=== PATIENT | male | born 1955 | race Caucasian/White ===

== ENCOUNTER → 2016-06-09 | Day surgery (SDC) | payer BC ==
[~2016-06-09] VITALS: Ht 177.8 cm; Wt 107.5 kg
[~2016-06-09] MED LIST: ATEN25TA PO; BUPIVACAINE HCL 0.5% 30 ML VIAL XX ONE; BUPIVACAINE/EPIN 0.5% 30 ML VIAL As Ordered ONE; GLYCOPYRROLATE INJ 0.2 MG/ML 2 ML VIAL As Ordered ONE; LIDOCAINE 2% INJ 100 MG/5 ML SDV (FOR ANES.) As Ordered ONE; LIDOCAINE W/EPINEPHRINE 1% 20ML VIAL As Ordered ONE; LIDOCAINE W/EPINEPHRINE 1% 20ML VIAL XX ONE; LR 1,000 ML IV SCH; METOCLOPRAMIDE INJ 10MG/2ML VIAL (J2765) As Ordered ONE; METOCLOPRAMIDE INJ 10MG/2ML VIAL (J2765) IV PRN; MIDAZOLAM INJ 2 MG/2 ML VIAL (J2250) As Ordered ONE; MORPHINE 10 MG/ML 1ML VIAL IV PRN; NEOSTIGMINE 1MG/ML 5 ML SYRINGE (J2710) As Ordered ONE; OMEP40CA2 PO; ONDANSETRON 4MG/2ML VIAL (J2405) As Ordered ONE; ONDANSETRON 4MG/2ML VIAL (J2405) IV PRN; PERCOCET 5MG/325MG TAB PO PRN; PERCOCET PO; PROPOFOL 200 MG/20 ML VIAL As Ordered ONE; ROCURONIUM BROMIDE 50 MG/5 ML VIAL As Ordered ONE; SUCCINYLCHOLINE 100 MG/5 ML SYRINGE (J0330) As Ordered ONE; VITA1TAB23 PO; VITA200016 PO; dexameTHASONE 4 MG/ML 1ML VIAL (J1100) As Ordered ONE; fentaNYL 100 MCG/2 ML INJECTION (J3010) As Ordered ONE; fentaNYL 100 MCG/2 ML INJECTION (J3010) IV PRN
[2016-06-09] MEDS: LR 1,000 ML IV SCH (09:27)
[2016-06-09 16:00] VITALS: BP 137/84
--- NOTE | 2016-06-09 18:57 | RO ---
DATE OF PROCEDURE: 06/09/2016 PREPROCEDURE DIAGNOSIS: Sleep apnea. POSTPROCEDURE DIAGNOSIS: Sleep apnea. OPERATIVE PROCEDURE: Lateral pharyngoplasty. 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 DESCRIPTION OF PROCEDURE: With the patient intubated, the patient was draped in the usual manner. A Trejo-José mouth gag was inserted. The tonsillar area was infiltrated with lidocaine and epinephrine. I made an incision in the posterior pillar. I made a superior based flap which was 2 cm long dividing the mucosa and posterior pillar muscle and lateral platoglossus. I elevated the muscle the whole length of the flap. Once this was done, then I put a suture of #3-0 Vicryl which was locking into the flap. I sutured then behind the last molar of the maxilla adjacent to the soft palate. I used a free needle to put the second suture in and then tied it. The same procedure was performed on both sides. The uvula was very long so I trimmed it by 1.5 cm. Any bleeding was controlled with cautery. Minimal blood loss. The patient tolerated the procedure well and was extubated and transferred to the recovery room in excellent condition.
== END | disposition home or self-care (01) ==
LOC: M SDC 08:47
PROVIDERS: ATTEND Otolaryngology
DX: G47.33 Obstructive sleep apnea (adult) (pediatric) (principal); I10 Essential (primary) hypertension; E78.5 Hyperlipidemia, unspecified; K21.9 Gastro-esophageal reflux disease without esophagitis; R73.02 Impaired glucose tolerance (oral); M54.9 Dorsalgia, unspecified; Z87.891 Personal history of nicotine dependence; Z79.899 Other long term (current) drug therapy
CPT/HCPCS: 42950; 88305; J0330; J1100; J2250; J2405; J2710; J2765; J3010

== ENCOUNTER → 2017-02-24 | Outpatient (REF) | payer BC ==
[~2017-02-24] MED LIST changes: -BUPIVACAINE HCL 0.5% 30 ML VIAL XX ONE; -BUPIVACAINE/EPIN 0.5% 30 ML VIAL As Ordered ONE; -GLYCOPYRROLATE INJ 0.2 MG/ML 2 ML VIAL As Ordered ONE; -LIDOCAINE 2% INJ 100 MG/5 ML SDV (FOR ANES.) As Ordered ONE; -LIDOCAINE W/EPINEPHRINE 1% 20ML VIAL As Ordered ONE; -LIDOCAINE W/EPINEPHRINE 1% 20ML VIAL XX ONE; -LR 1,000 ML IV SCH; -METOCLOPRAMIDE INJ 10MG/2ML VIAL (J2765) As Ordered ONE; -METOCLOPRAMIDE INJ 10MG/2ML VIAL (J2765) IV PRN; -MIDAZOLAM INJ 2 MG/2 ML VIAL (J2250) As Ordered ONE; -MORPHINE 10 MG/ML 1ML VIAL IV PRN; -NEOSTIGMINE 1MG/ML 5 ML SYRINGE (J2710) As Ordered ONE; -ONDANSETRON 4MG/2ML VIAL (J2405) As Ordered ONE; -ONDANSETRON 4MG/2ML VIAL (J2405) IV PRN; -PERCOCET 5MG/325MG TAB PO PRN; -PROPOFOL 200 MG/20 ML VIAL As Ordered ONE; -ROCURONIUM BROMIDE 50 MG/5 ML VIAL As Ordered ONE; -SUCCINYLCHOLINE 100 MG/5 ML SYRINGE (J0330) As Ordered ONE; -dexameTHASONE 4 MG/ML 1ML VIAL (J1100) As Ordered ONE; -fentaNYL 100 MCG/2 ML INJECTION (J3010) As Ordered ONE; -fentaNYL 100 MCG/2 ML INJECTION (J3010) IV PRN
== END ==
LOC: M LAB REF 17:05
PROVIDERS: ATTEND Nurse Practitioner Adult Health
DX: E78.5 Hyperlipidemia, unspecified (principal)

== ENCOUNTER 2018-06-14 06:14 | Emergency (ER) | payer BC ==
[~2018-06-14] VITALS: Ht 177.8 cm; Wt 108.2 kg
[2018-06-14] MEDS ORDERED: PROP60CA PO (06:24)
[2018-06-14] MEDS ORDERED: ASPI1TAB PO (06:24)
[2018-06-14] MEDS ORDERED: VITA10002 PO (06:24)
[2018-06-14] MEDS ORDERED: MULTTAB23 PO (06:24)
[2018-06-14] MEDS ORDERED: ONDANSETRON 4 MG ORAL DISINTEGRATING TAB (Q0162 PER 1MG) PO ONE (07:00)
[2018-06-14] MEDS ORDERED: IBUPROFEN 800 MG TAB PO ONE (07:00)
[2018-06-14 07:21] LABS: INFLUENZA A AMPLIFICATION POSITIVE (NEGATIVE); INFLUENZA B AMPLIFICATION NEGATIVE (NEGATIVE)
[2018-06-14] MEDS ORDERED: OSEL75CA PO (07:43)
[2018-06-14] MEDS ORDERED: CHERSYP3 PO (07:43)
[2018-06-14] MEDS ORDERED: ZITHTAB PO (07:43)
[2018-06-14 10:01] VITALS: BP 103/56
--- NOTE | 2018-06-14 13:43 | REP ---
Clinical: Cough and fever. Comparison: 12/04/2013 . Technique: PA and lateral. Findings: The mediastinum and cardiac silhouette are normal. The lung contreras are clear and without acute consolidation, effusion, or pneumothorax. The skeletal structures are intact and normal. Impression: 1. No acute cardiopulmonary process. Electronically Signed by Per Coleho MD 06/14/2018 01:35 P
== END 2018-06-14 10:04 | disposition home or self-care (01) ==
LOC: M ED 06:14
DX: J09.X2 Influenza due to identified novel influenza A virus with other respiratory manifestations (principal); I10 Essential (primary) hypertension; G47.30 Sleep apnea, unspecified; K21.9 Gastro-esophageal reflux disease without esophagitis; Z98.890 Other specified postprocedural states; Z79.899 Other long term (current) drug therapy; Z79.82 Long term (current) use of aspirin
CPT/HCPCS: 71046; 87502; 99283; Q0162

== ENCOUNTER 2019-02-17 09:25 | Day surgery (SDC) | payer BC ==
[~2019-02-17] VITALS: Ht 177.8 cm; Wt 105.0 kg
[~2019-02-17 09:25] MED LIST changes: +ASPI81TA26 PO; +CHERSYP3 PO; +CYAN100049 PO; +FLEC1TAB PO; +LIDOCAINE 2% INJ 100 MG/5 ML SDV (FOR ANES.) As Ordered ONE; +MULTTAB23 PO; +NS 1,000 ML IV ONE; +OSEL75CA PO; +PROP60CA PO; +XARE20TA PO; +ZITHTAB PO
[2019-02-17] MEDS ORDERED: PROPOFOL 200 MG/20 ML VIAL As Ordered ONE ×2 (11:11→11:18)
[2019-02-17] MEDS ORDERED: LABETALOL HCL 100 MG/20 ML VIAL As Ordered ONE (11:22)
--- NOTE | 2019-02-17 11:40 | ROOR ---
Patient Name: Edward Denson Procedure Date: 02/17/2019 11:10 AM Date of : 1955 Age: 63 Room: [facility] Gender: Male Note Status: Finalized Procedure: Colonoscopy Indications: High risk colon cancer surveillance: Personal history of non-advanced adenoma, Last colonoscopy: September 2013 Providers: Dimitrios Franks MD Referring MD: Swati Logan NP Requesting Provider: Medicines: Monitored Anesthesia Care Complications: No immediate complications. Procedure: Pre-Anesthesia Assessment: - Prior to the procedure, a History and Physical was performed, and patient medications and allergies were reviewed. The patient is competent. The risks and benefits of the procedure and the sedation options and risks were discussed with the patient. All questions were answered and informed consent was obtained. Patient identification and proposed procedure were verified by the physician, the nurse and the anesthesiologist in the procedure room. Mental Status Examination: alert and oriented. Airway Examination: normal oropharyngeal airway and neck mobility. CV Examination: irregularly irregular rate and rhythm. Prophylactic Antibiotics: The patient does not require prophylactic antibiotics. Prior Anticoagulants: The patient has taken Xarelto (rivaroxaban), last dose was 4 days prior to procedure. ASA Grade Assessment: III - A patient with severe systemic disease. After reviewing the risks and benefits, the patient was deemed in satisfactory condition to undergo the procedure. The anesthesia plan was to use monitored anesthesia care (MAC). Immediately prior to administration of medications, the patient was re-assessed for adequacy to receive sedatives. The heart rate, respiratory rate, oxygen saturations, blood pressure, adequacy of pulmonary ventilation, and response to care were monitored throughout the procedure. The physical status of the patient was re-assessed after the procedure. The Colonoscope was introduced through the anus and advanced to the cecum, identified by appendiceal orifice and ileocecal valve. The colonoscopy was performed without difficulty. The patient tolerated the procedure well. The quality of the bowel preparation was excellent. Findings: The perianal and digital rectal examinations were normal. The colon (entire examined portion) appeared normal. Impression: - The entire examined colon is normal. - No specimens collected. Recommendation: - Discharge patient to home. - Resume previous diet. - Continue present medications. - Repeat colonoscopy in 5 years for surveillance. Dimitrios Franks MD Dimitrios Franks MD 02/17/2019 11:39:43 AM Electronically signed by Dimitrios Franks MD Number of Addenda: 0 Note Initiated On: 02/17/2019 11:10 AM Estimated Blood Loss: Estimated blood loss: none.
[2019-02-17 12:00] VITALS: BP 111/73
== END 2019-02-17 12:10 | disposition home or self-care (01) ==
LOC: M OPP 09:25
PROVIDERS: ATTEND Surgery
DX: Z12.11 Encounter for screening for malignant neoplasm of colon (principal); Z86.010 Personal history of colon polyps; G47.30 Sleep apnea, unspecified; I48.91 Unspecified atrial fibrillation; Z79.899 Other long term (current) drug therapy; Z88.1 Allergy status to other antibiotic agents; Z88.8 Allergy status to other drugs, medicaments and biological substances; Z87.891 Personal history of nicotine dependence

== ENCOUNTER → 2019-02-18 | Outpatient (CLI) | payer BC ==
[~2019-02-18] MED LIST changes: -LIDOCAINE 2% INJ 100 MG/5 ML SDV (FOR ANES.) As Ordered ONE; -NS 1,000 ML IV ONE
[2019-02-18 11:26] LABS: BASO % 0.7 % (0.0-1.0); EOS # 0.1 10^3/uL (0.0-0.5); EOS % 1.8 % (0.0-3.0); HEMATOCRIT 46.1 % (42.0-52.0); LYMPH # 1.6 10^3/uL (1.5-5.0); LYMPH % 29.1 % (24.0-44.0); MEAN CORPUSCULAR HEMOGLOBIN 31.2 pg (27.0-33.0); MEAN CORPUSCULAR HGB CONC 34.7 g/dl (32.0-36.5); MEAN CORPUSCULAR VOLUME 89.9 fl (80.0-96.0); MONO # 0.5 10^3/uL (0.0-0.8); MONO % 8.3 % (0.0-5.0); NEUTROPHILS # 3.3 10^3/uL (1.5-8.5); NEUTROPHILS % 59.7 % (36.0-66.0); PLATELET COUNT, AUTOMATED 186 10^3/uL (150-450); RED BLOOD COUNT 5.13 10^6/uL (4.30-6.10); WHITE BLOOD COUNT 5.5 10^3/uL (4.0-10.0)
[2019-02-18 11:49] LABS: BLOOD UREA NITROGEN 14 MG/DL (7-18); CALCIUM LEVEL 8.7 MG/DL (8.8-10.2); CARBON DIOXIDE LEVEL 28 MEQ/L (21-32); CHLORIDE LEVEL 106 MEQ/L (98-107); CREATININE FOR GFR 0.96 MG/DL (0.70-1.30); GLOMERULAR FILTRATION RATE > 60.0 (>49); GLUCOSE, FASTING 96 MG/DL (70-100); POTASSIUM SERUM 4.5 MEQ/L (3.5-5.1); SODIUM LEVEL 140 MEQ/L (136-145)
== END ==
LOC: M LAB 10:25
PROVIDERS: ATTEND Internal Medicine Cardiovascular Disease
DX: R06.02 Shortness of breath (principal); I10 Essential (primary) hypertension

== ENCOUNTER 2019-04-24 20:42 | Emergency (ER) | payer BC, OTHER ==
[~2019-04-24] VITALS: Ht 177.8 cm; Wt 104.5 kg
[~2019-04-24 20:42] MED LIST changes: -OMEP40CA2 PO; +OMEP40CA97 PO
[2019-04-24 20:43] VITALS: BP 126/86
[2019-04-24] MEDS ORDERED: ACETAMINOPHEN 325 MG TAB PO ONE (21:15)
--- NOTE | 2019-04-25 06:17 | REP ---
Clinical: Trauma. Technique: AP, lateral, bilateral oblique views of the right ankle. Findings: Age-related degenerative changes are appreciated. Lateral swelling consist with inversion injury. Injury to the medial malleolus likely chronic. Clinical correlation is recommended. Ankle mortise appears intact. Impression: Swelling. Possible old injury to the medial malleolus. Clinical correlation is recommended. Electronically Signed by Per Coelho MD 04/25/2019 06:08 A
--- NOTE | 2019-04-25 13:37 | ED PDOC ---
Post-Departure Follow-Up dr quintero faxed formal report of right ankle film for fu Gilbert Kennedy MD Apr 25, 2019 13:37
== END 2019-04-24 22:13 | disposition home or self-care (01) ==
LOC: M ED 20:42
DX: S93.401A Sprain of unspecified ligament of right ankle, initial encounter (principal); W00.9XXA Unspecified fall due to ice and snow, initial encounter; Y92.89 Other specified places as the place of occurrence of the external cause; Y93.9 Activity, unspecified; Y99.0 Civilian activity done for income or pay; I48.91 Unspecified atrial fibrillation; I10 Essential (primary) hypertension; G47.33 Obstructive sleep apnea (adult) (pediatric); K21.9 Gastro-esophageal reflux disease without esophagitis; Z79.01 Long term (current) use of anticoagulants; Z79.899 Other long term (current) drug therapy

== ENCOUNTER → 2019-08-10 | Outpatient (CLI) | payer BC ==
--- NOTE | 2019-08-10 17:32 | REP ---
Clinical: Lung screening. History smoking. Comparison: None Technique: Axial low-dose noncontrast images from the thoracic inlet to the upper abdomen using lung screening technique. Findings: The lung contreras are well-aerated. Few scattered noncalcified subpleural densities measure up to approximately 5 mm along with minimal linear scarring in the right middle lobe. A 7 mm noncalcified nodule at the left lung base (image 82) cannot be excluded. No consolidation, pleural effusion/reaction or pneumothorax. Tracheobronchial tree is patent. Mediastinum demonstrates atherosclerotic changes of the coronary arteries without cardiomegaly. Impression: Lung-RADS category III. Possible 7 mm noncalcified nodule at the left lung base. Management recommendations include 6-month follow-up examination. Electronically Signed by Per Coelho MD 08/10/2019 05:23 P
== END ==
LOC: M RAD 13:39
PROVIDERS: ATTEND Nurse Practitioner Family
DX: Z12.2 Encounter for screening for malignant neoplasm of respiratory organs (principal); Z87.891 Personal history of nicotine dependence; J98.4 Other disorders of lung; I25.10 Atherosclerotic heart disease of native coronary artery without angina pectoris

== ENCOUNTER 2019-11-19 17:08 | Emergency (ER) | payer BC ==
[~2019-11-19] VITALS: Ht 180.3 cm; Wt 104.3 kg
[2019-11-19 17:08] VITALS: BP 137/84
[~2019-11-19 17:08] MED LIST changes: -VITA1TAB23 PO; +VITA250T26 PO
[2019-11-19 18:36] LABS: BASO % 0.3 % (0.0-1.0); EOS % 0.6 % (0.0-3.0); HEMOGLOBIN 15.1 g/dl (13.5-17.5); LYMPH # 0.9 10^3/uL (1.5-5.0); LYMPH % 13.1 % (24.0-44.0); MEAN CORPUSCULAR HEMOGLOBIN 30.5 pg (27.0-33.0); MEAN CORPUSCULAR HGB CONC 33.6 g/dl (32.0-36.5); MEAN CORPUSCULAR VOLUME 90.9 fl (80.0-96.0); MONO # 0.6 10^3/uL (0.0-0.8); NEUTROPHILS # 5.2 10^3/uL (1.5-8.5); NEUTROPHILS % 76.7 % (36.0-66.0); PLATELET COUNT, AUTOMATED 140 10^3/uL (150-450); RED BLOOD COUNT 4.95 10^6/uL (4.30-6.10); WHITE BLOOD COUNT 6.8 10^3/uL (4.0-10.0)
[2019-11-19 19:05] LABS: ALBUMIN 3.8 GM/DL (3.2-5.2); ALT/SGPT 22 U/L (12-78); BILIRUBIN,DIRECT 0.2 MG/DL (0.0-0.2); BILIRUBIN,TOTAL 0.8 MG/DL (0.2-1.0); BLOOD UREA NITROGEN 8 MG/DL (7-18); CALCIUM LEVEL 8.3 MG/DL (8.8-10.2); CARBON DIOXIDE LEVEL 28 MEQ/L (21-32); CHLORIDE LEVEL 107 MEQ/L (98-107); CK-MB VALUE MASS < 1.0 NG/ML (<3.6); CPK CREATINE PHOSPHOKINASE 85 U/L (39-308); CREATININE FOR GFR 0.91 MG/DL (0.70-1.30); GLOMERULAR FILTRATION RATE > 60.0 (>49); GLUCOSE, FASTING 87 MG/DL (70-100); MB/CK RELATIVE INDEX 1.18 (< OR =4); POTASSIUM SERUM 3.8 MEQ/L (3.5-5.1); SODIUM LEVEL 141 MEQ/L (136-145); TOTAL PROTEIN 6.9 GM/DL (6.4-8.2); TROPONIN I < 0.02 NG/ML (< 0.10)
== END 2019-11-19 19:40 | disposition home or self-care (01) ==
LOC: M ED 17:08
DX: M79.10 Myalgia, unspecified site (principal); I48.91 Unspecified atrial fibrillation; I10 Essential (primary) hypertension; K21.9 Gastro-esophageal reflux disease without esophagitis; Z79.01 Long term (current) use of anticoagulants; Z79.899 Other long term (current) drug therapy

== ENCOUNTER → 2020-02-01 | Outpatient (CLI) | payer BC ==
--- NOTE | 2020-02-21 08:24 | REP ---
NON-CONTRAST CHEST CT: 02/01/20 CLINICAL: Follow-up abnormal lung findings. COMPARISON: 08/10/19. TECHNIQUE: Axial non-contrast images from the thoracic inlet to the upper abdomen with coronal and sagittal reformations. FINDINGS: The previously noted suspected 7mm nodule at the left lung base is again suggested (image 88) and unchanged. A similar 7mm nodule at the right lung base is also identified and unchanged. The remainder of the lung contreras are all aerated and clear. No further consolidation, suspicious nodule or mass lesion noted. No pleural effusion. No pneumothorax. Tracheobronchial tree is patent. Mediastinum demonstrates atherosclerotic changes to the thoracic aorta and coronary arteries without aortic aneurysm or cardiomegaly. No pericardial effusion. No adenopathy. Surrounding musculoskeletal structures are intact. IMPRESSION: Two small nodules at the bilateral lung bases remain stable. Fleischner society criteria rate this as Lung RADS category [address] low dose CT follow-up may be warranted. MTDD
== END ==
LOC: M RAD 08:48
PROVIDERS: ATTEND Nurse Practitioner Family
DX: R91.8 Other nonspecific abnormal finding of lung field (principal)

== ENCOUNTER 2020-06-03 04:13 | Emergency (ER) | payer BC ==
[~2020-06-03] VITALS: Ht 177.8 cm; Wt 100.3 kg
[2020-06-03] MEDS ORDERED: ACET-683 PO (04:27)
[2020-06-03 05:55] LABS: BASO % 0.2 % (0.0-1.0); EOS % 0.4 % (0.0-3.0); HEMATOCRIT 47.2 % (42.0-52.0); HEMOGLOBIN 15.5 g/dl (13.5-17.5); MEAN CORPUSCULAR HEMOGLOBIN 29.8 pg (27.0-33.0); MEAN CORPUSCULAR HGB CONC 32.8 g/dl (32.0-36.5); MEAN CORPUSCULAR VOLUME 90.6 fl (80.0-96.0); MONO # 0.4 10^3/uL (0.0-0.8); MONO % 7.7 % (0.0-5.0); NEUTROPHILS # 3.1 10^3/uL (1.5-8.5); NEUTROPHILS % 69.3 % (36.0-66.0); PLATELET COUNT, AUTOMATED 153 10^3/uL (150-450); RED BLOOD COUNT 5.21 10^6/uL (4.30-6.10); WHITE BLOOD COUNT 4.5 10^3/uL (4.0-10.0)
--- NOTE | 2020-06-03 05:59 | REPVR ---
PROCEDURE INFORMATION: Exam: XR Chest, 1 View Exam date and time: 06/03/2020 5:11 AM Age: 64 years old Clinical indication: Chest pain TECHNIQUE: Imaging protocol: XR of the chest Views: 1 view. COMPARISON: CT Chest without contrast 02/01/2020 9:07 AM FINDINGS: Lungs: Unremarkable. No consolidation. Pleural space: Unremarkable. No pleural effusion. No pneumothorax. Heart/Mediastinum: Unremarkable. No cardiomegaly. Bones/joints: Unremarkable. IMPRESSION: No acute findings. Electronically signed by: Ollie Gentile On 06/03/2020 05:59:34 AM
[2020-06-03 06:03] LABS: INR 1.28; PROTHROMBIN TIME 16.3 SECONDS (12.5-14.3)
[2020-06-03 06:04] LABS: PARTIAL THROMBOPLASTIN TIME 33.3 SECONDS (24.2-38.5)
[2020-06-03 07:34] VITALS: O2SAT 96
[2020-06-03 08:10] LABS: BLOOD UREA NITROGEN 10 MG/DL (7-18); CHLORIDE LEVEL 106 MEQ/L (98-107); CREATININE FOR GFR 0.81 MG/DL (0.70-1.30); GLOMERULAR FILTRATION RATE > 60.0 (>49); GLUCOSE, FASTING 101 MG/DL (70-100); POTASSIUM SERUM 3.4 MEQ/L (3.5-5.1); SODIUM LEVEL 139 MEQ/L (136-145)
[2020-06-03 08:11] LABS: ALT/SGPT 22 IU/L (0-32); CARBON DIOXIDE LEVEL 24 mmol/L (20-29); CK-MB VALUE MASS < 1.0 NG/ML (<3.6); CPK CREATINE PHOSPHOKINASE 47 U/L (39-308); MB/CK RELATIVE INDEX 2.12 (< OR =4)
[2020-06-03 08:12] LABS: BILIRUBIN,DIRECT 0.1 MG/DL (0.0-0.2); BILIRUBIN,TOTAL 0.6 MG/DL (0.2-1.0)
[2020-06-03 08:13] LABS: ALBUMIN 3.5 GM/DL (3.2-5.2); FREE T4 1.28 NG/DL (0.76-1.46); NT-PRO BNP 808 PG/ML (<125); THYROID STIMULATING HORMONE 0.856 uIU/ML (0.358-3.740); TOTAL PROTEIN 6.6 GM/DL (6.4-8.2); TROPONIN I < 0.02 NG/ML (< 0.10)
[2020-06-03 09:20] VITALS: BP 105/78
--- NOTE | 2020-06-03 09:51 | ECGEPIP ---
[facility] - ED Test Date: 2020-06-03 Pat Name: MERRITT STRONG Department: Room: - Gender: Male [employer]: : 1955 Requested By: BEN Linn Order Number: [id number] Reading MD: Gilbert Churchill Measurements Intervals [place] Rate: 93 P: [place]: 0 QRS: 47 QRSD: 90 T: 28 QT: 360 QTc: 448 Interpretive Statements ATRIAL FIBRILLATION ABNORMAL RHYTHM ECG NONSPECIFIC ST T WAVE CHANGES NO PRIOR ECG FOR COMPARISON Electronically Signed on 06-03-2020 9:51:39 EST by Gilbert Churchill
[2020-06-03 10:07] LABS: BLOOD UREA NITROGEN 9 MG/DL (7-18); GLOMERULAR FILTRATION RATE > 60.0 (>49); GLUCOSE, FASTING 93 MG/DL (70-100)
[2020-06-03 10:08] LABS: CARBON DIOXIDE LEVEL 25 mmol/L (20-29); CHLORIDE LEVEL 107 MEQ/L (98-107); POTASSIUM SERUM 3.5 MEQ/L (3.5-5.1); SODIUM LEVEL 139 MEQ/L (136-145)
== END 2020-06-03 09:38 | disposition home or self-care (01) ==
LOC: M ED 04:13
DX: U07.1 COVID-19 (principal); R23.2 Flushing; I48.91 Unspecified atrial fibrillation; R94.31 Abnormal electrocardiogram [ECG] [EKG]; I10 Essential (primary) hypertension; K21.9 Gastro-esophageal reflux disease without esophagitis; G47.30 Sleep apnea, unspecified; Z79.01 Long term (current) use of anticoagulants; Z79.899 Other long term (current) drug therapy

== ENCOUNTER → 2020-08-03 | Outpatient (CLI) | payer BC ==
[~2020-08-03] MED LIST changes: +ACET-683 PO
--- NOTE | 2020-08-03 11:12 | REP ---
INDICATION: OTHER NONSPECIFIC ABNORMAL FINDING OF SREE, DYSPNEA COMPARISON: 02/01/2020 TECHNIQUE: Axial noncontrast images from the thoracic inlet to the upper abdomen with coronal and sagittal reformations. This CT examination was performed using the following dose reduction techniques: Automated exposure control, adjustment of mA and/or kv according to the patient's size, and use of iterative reconstruction technique. FINDINGS: Lung contreras demonstrate mild chronic emphysematous changes with scattered age-related interstitial changes. Previously identified nodular densities at the bilateral lower lung bases likely reflect small pleural plaques and are unchanged. No new consolidation, suspicious nodule or mass lesion. No pleural effusion. No pneumothorax. Tracheobronchial tree is patent. No obvious adenopathy. Mediastinum demonstrates atherosclerotic changes to the thoracic aorta and coronary arteries without aortic aneurysm or cardiomegaly. No pericardial effusion. Musculoskeletal structures are intact. Limited upper abdomen demonstrates normal bilateral adrenal glands. IMPRESSION: Stable small pleural nodular plaques unchanged. Mild chronic emphysematous changes. No acute mediastinal or pleuroparenchymal process. <Electronically signed by Per Coelho > 08/03/20 [id number]
== END ==
LOC: M RAD 10:30
PROVIDERS: ATTEND Nurse Practitioner Family
DX: R91.8 Other nonspecific abnormal finding of lung field (principal); R06.00 Dyspnea, unspecified

== ENCOUNTER → 2020-12-14 | Outpatient (CLI) | payer BC ==
[~2020-12-14] MED LIST changes: +OMEP40CA4 PO; -OMEP40CA97 PO
--- NOTE | 2020-12-14 16:42 | REP ---
INDICATION: SPRAIN RIBS, FALL, LEFT SIDE. COMPARISON: Comparison chest x-ray 03 June 2020.. TECHNIQUE: Five views including PA chest. FINDINGS: PA chest radiograph shows no evidence of pneumothorax or hydrothorax. Mediastinum is not widened. Heart size is normal. No infiltrate is seen. Multiple views of the left ribcage demonstrate a transverse nondisplaced fracture of the left 10th lateral rib. There is healing periosteal reaction associated with this nondisplaced fracture.a no definitely acute rib fracture is appreciated. No bony destructive lesion is seen. IMPRESSION: Tenth lateral rib fracture with healing periosteal callus. No acute rib fracture appreciated. <Electronically signed by Rodríguez Sorto > 12/14/20 [id number]
== END ==
LOC: M WUC 13:55
PROVIDERS: ATTEND Nurse Practitioner Family
DX: S23.41XA Sprain of ribs, initial encounter (principal); W01.10XA Fall on same level from slipping, tripping and stumbling with subsequent striking against unspecified object, initial encounter; S22.32XD Fracture of one rib, left side, subsequent encounter for fracture with routine healing; Y92.9 Unspecified place or not applicable

== ENCOUNTER → 2021-08-26 | Outpatient (CLI) | payer MEDICARE, BC | LOC: M PLAIMG 09:48 | PROVIDERS: ATTEND Internal Medicine Pulmonary Disease | DX: R91.8 Other nonspecific abnormal finding of lung field (principal); J84.10 Pulmonary fibrosis, unspecified ==

== ENCOUNTER → 2021-12-04 | Outpatient (CLI) | payer MEDICARE, BC | LOC: M WUC 14:18 | PROVIDERS: ATTEND Nurse Practitioner Adult Health | DX: M50.30 Other cervical disc degeneration, unspecified cervical region (principal) ==

== ENCOUNTER → 2022-04-08 | Outpatient (CLI) | payer MEDICARE, BC | LOC: M RAD 15:20 | PROVIDERS: ATTEND Nurse Practitioner Adult Health | DX: M50.21 Other cervical disc displacement, high cervical region (principal); M50.221 Other cervical disc displacement at C4-C5 level; M47.812 Spondylosis without myelopathy or radiculopathy, cervical region ==

== ENCOUNTER 2023-03-10 14:08 | Emergency (ER) | payer MEDICARE, BC ==
[~2023-03-10] VITALS: Ht 177.8 cm; Wt 104.1 kg
[2023-03-10 14:09] VITALS: TEMP 98.5; O2SAT 95
[2023-03-10] MEDS ORDERED: CARV12.5 PO (14:23)
[2023-03-10 17:18] VITALS: BP 140/92
[2023-03-10] MEDS ORDERED: NEOSPORIN OINT 0.9 GM PKT TOP ONE (17:25)
[2023-03-10] MEDS ORDERED: LIDOCAINE 2% MDV 20ML VIAL SC ONE (17:25)
[2023-03-10] MEDS ORDERED: BOOSTRIX VACCINE (TETANUS/DIPHTH/ACEL. PERTUSSIS) 0.5ML SYR IM.IMMUN ONE (17:25)
== END 2023-03-10 18:39 | disposition home or self-care (01) ==
LOC: M ED 14:08
DX: S61.012A Laceration without foreign body of left thumb without damage to nail, initial encounter (principal); W26.0XXA Contact with knife, initial encounter; Y92.009 Unspecified place in unspecified non-institutional (private) residence as the place of occurrence of the external cause; Y93.9 Activity, unspecified; Y99.9 Unspecified external cause status; Z79.02 Long term (current) use of antithrombotics/antiplatelets; Z79.899 Other long term (current) drug therapy; Z23 Encounter for immunization

== ENCOUNTER → 2023-05-15 | Outpatient (CLI) | payer MEDICARE, BC ==
[~2023-05-15] MED LIST changes: +CARV12.5 PO
== END ==
LOC: M WUC 11:23
PROVIDERS: ATTEND Physician Assistant
DX: S33.5XXA Sprain of ligaments of lumbar spine, initial encounter (principal); M47.817 Spondylosis without myelopathy or radiculopathy, lumbosacral region; X58.XXXA Exposure to other specified factors, initial encounter; Y92.9 Unspecified place or not applicable; Y93.9 Activity, unspecified; Y99.9 Unspecified external cause status

== ENCOUNTER → 2023-07-31 | Outpatient (CLI) | payer MEDICARE, BC | LOC: M SOG 07:54 | PROVIDERS: ATTEND Orthopaedic Surgery | DX: M16.0 Bilateral primary osteoarthritis of hip (principal) ==

== ENCOUNTER → 2023-08-06 | Outpatient (CLI) | payer MEDICARE | LOC: M PLAIMG 06:52 | PROVIDERS: ATTEND Orthopaedic Surgery | DX: M47.27 Other spondylosis with radiculopathy, lumbosacral region (principal); M48.061 Spinal stenosis, lumbar region without neurogenic claudication ==

== ENCOUNTER → 2024-03-31 | Outpatient (CLI) | payer MEDICARE | LOC: M WUC 14:51 | PROVIDERS: ATTEND Student in an Organized Health Care Education/Training Program | DX: R05.9 Cough, unspecified (principal); J43.9 Emphysema, unspecified ==

== ENCOUNTER → 2024-05-30 | Outpatient (CLI) | payer MEDICARE ==
[2024-05-30 12:26] LABS: BASO % 0.9 % (0.0-1.0); EOS % 0.6 % (0.0-3.0); HEMATOCRIT 46.9 % (42.0-52.0); HEMOGLOBIN 16.1 g/dl (13.5-17.5); LYMPH # 1.4 10^3/uL (1.5-5.0); LYMPH % 40.7 % (24.0-44.0); MEAN CORPUSCULAR HEMOGLOBIN 29.8 pg (27.0-33.0); MEAN CORPUSCULAR HGB CONC 34.3 g/dl (32.0-36.5); MEAN CORPUSCULAR VOLUME 86.7 fl (80.0-96.0); MONO # 0.4 10^3/uL (0.0-0.8); MONO % 11.5 % (2.0-8.0); NEUTROPHILS # 1.6 10^3/uL (1.5-8.5); PLATELET COUNT, AUTOMATED 137 10^3/uL (150-450); RED BLOOD COUNT 5.41 10^6/uL (4.30-6.10); WHITE BLOOD COUNT 3.4 10^3/uL (4.0-10.0)
[2024-05-30 12:31] LABS: ALBUMIN 3.6 G/DL (3.2-5.2); ALKALINE PHOSPHATASE 139 U/L (40-129); ALT/SGPT 98 U/L (7.0-40); AST/SGOT 102 U/L (<34); BILIRUBIN,TOTAL 0.5 MG/DL (0.3-1.2); BLOOD UREA NITROGEN 11 MG/DL (9-23); CALCIUM LEVEL 9.1 MG/DL (8.3-10.6); CARBON DIOXIDE LEVEL 31 MMOL/L (20-31); CHLORIDE LEVEL 100 MMOL/L (98-107); CREATININE FOR GFR 0.89 MG/DL (0.70-1.30); GLOMERULAR FILTRATION RATE > 60.0 (>49); GLUCOSE, FASTING 108 MG/DL (74-106); POTASSIUM SERUM 3.9 MMOL/L (3.5-5.1); SODIUM LEVEL 138 MMOL/L (136-145); TOTAL PROTEIN 6.9 G/DL (5.7-8.2)
== END ==
LOC: M WUC 08:46
PROVIDERS: ATTEND Nurse Practitioner Family
DX: R05.9 Cough, unspecified (principal); R53.83 Other fatigue

== ENCOUNTER 2024-05-31 06:12 | Emergency (ER) | payer MEDICARE ==
[~2024-05-31] VITALS: Ht 177.8 cm; Wt 96.0 kg
[2024-05-31 06:56] LABS: HEMATOCRIT 45.5 % (42.0-52.0); HEMOGLOBIN 16.1 g/dl (13.5-17.5); LYMPH # 1.6 10^3/uL (1.5-5.0); LYMPH % 50.5 % (24.0-44.0); MEAN CORPUSCULAR HEMOGLOBIN 30.6 pg (27.0-33.0); MEAN CORPUSCULAR HGB CONC 35.4 g/dl (32.0-36.5); MEAN CORPUSCULAR VOLUME 86.3 fl (80.0-96.0); MONO # 0.4 10^3/uL (0.0-0.8); MONO % 11.9 % (2.0-8.0); NEUTROPHILS # 1.1 10^3/uL (1.5-8.5); NEUTROPHILS % 35.3 % (36.0-66.0); PLATELET COUNT, AUTOMATED 145 10^3/uL (150-450); RED BLOOD COUNT 5.27 10^6/uL (4.30-6.10); WHITE BLOOD COUNT 3.1 10^3/uL (4.0-10.0)
[2024-05-31 07:17] LABS: ALBUMIN 3.6 G/DL (3.2-5.2); ALKALINE PHOSPHATASE 134 U/L (40-129); ALT/SGPT 89 U/L (7.0-40); AST/SGOT 83 U/L (<34); BILIRUBIN,TOTAL 0.5 MG/DL (0.3-1.2); BLOOD UREA NITROGEN 10 MG/DL (9-23); CARBON DIOXIDE LEVEL 26 MMOL/L (20-31); CHLORIDE LEVEL 106 MMOL/L (98-107); CREATININE FOR GFR 0.87 MG/DL (0.70-1.30); GLOMERULAR FILTRATION RATE > 60.0 (>49); GLUCOSE, FASTING 114 MG/DL (74-106); POTASSIUM SERUM 3.8 MMOL/L (3.5-5.1); SODIUM LEVEL 140 MMOL/L (136-145); TOTAL PROTEIN 6.6 G/DL (5.7-8.2)
[2024-05-31 07:38] LABS: CPK CREATINE PHOSPHOKINASE 94 U/L (46-171)
[2024-05-31 09:04] VITALS: BP 165/83; TEMP 98.2; O2SAT 96
== END 2024-05-31 09:05 | disposition home or self-care (01) ==
LOC: M ED 06:12
DX: D72.819 Decreased white blood cell count, unspecified (principal); K76.0 Fatty (change of) liver, not elsewhere classified; R74.01 Elevation of levels of liver transaminase levels; D69.6 Thrombocytopenia, unspecified; I48.91 Unspecified atrial fibrillation; E78.5 Hyperlipidemia, unspecified; K21.9 Gastro-esophageal reflux disease without esophagitis; Z79.02 Long term (current) use of antithrombotics/antiplatelets; Z79.899 Other long term (current) drug therapy

== ENCOUNTER → 2024-06-01 | Outpatient (REF) | payer MEDICARE ==
[2024-06-01 14:24] LABS: HEMATOCRIT 45.8 % (42.0-52.0)
[2024-06-01 14:53] LABS: IRON (FE) 92 UG/DL (65-175)
[2024-06-01 14:54] LABS: PERCENT SATURATION 35.8 % (19.7-50.0); TOTAL IRON BINDING CAPACITY 257 UG/DL (250-425)
[2024-06-01 14:56] LABS: FERRITIN 768.1 NG/ML (10.5-307.3); MONO REFLEX EBV COMP NEGATIVE (NEGATIVE)
[2024-06-01 15:06] LABS: HEPATITIS B SURFACE ANTIGEN NEGATIVE (NEGATIVE)
[2024-06-01 15:27] LABS: HEPATITIS C VIRUS ABY INDEX < 0.02 INDEX (<0.8)
[2024-06-01 15:28] LABS: HEPATITIS B CORE ANTIBODY IGM NEGATIVE (NEGATIVE)
[2024-06-02 15:17] LABS: EBV VIRAL CAPSID AG IGM < 36.00 U/mL (<36.00)
== END ==
LOC: M LAB REF 12:12
PROVIDERS: ATTEND Nurse Practitioner Adult Health
DX: R74.01 Elevation of levels of liver transaminase levels (principal)